=== PATIENT | female | born 1990 ===

== ENCOUNTER 2020-04-17 11:12 | Outpatient (CLI) | payer SELFPAY ==
[2020-04-19 06:27] LABS: SARS-CoV-2 RNA Undetected (Undetected); SARS-CoV-2 Specimen Source Nasopharynx
== END 2020-04-17 11:32 ==
PROVIDERS: Visit Provider Emergency Medicine
DX: Z11.59 Encounter for screening for other viral diseases (principal)
CPT/HCPCS: U0003